=== PATIENT | female | born 2000 | race Caucasian/White ===

== ENCOUNTER 2023-07-03 07:18 | Outpatient (CLI) | payer MEDICAID ==
[2023-07-03] VITALS (21 sets, daily range): BP systolic 125–159; BP diastolic 69–105; PULSE 69–109
== END 2023-07-03 23:59 | disposition home or self-care (01) ==
LOC: CARD DIAG 07:18
PROVIDERS: ATTEND Nurse Practitioner Family
DX: R55 Syncope and collapse (principal)
CPT/HCPCS: 93660

== ENCOUNTER 2024-12-10 17:31 | Emergency (ER) | payer MEDICAID ==
[~2024-12-10] VITALS: Ht 165.1 cm; Wt 132.9 kg
--- NOTE | 2024-12-10 18:24 | Physician Documentation ---
History of Present Illness Chief Complaint: Abdominal Pain Stated Complaint: GALL BLADDER PAIN HPI This is a 24-year-old female who presents with right upper quadrant pain and n ausea for the past two months, patient reports pain became worse yesterday. Patient reports pain is typically worse after eating. Reports nausea without vomiting. History as above. No fevers Medication Reconciliation Allergies: Coded Allergies: No Known Allergies (Unverified , 12/10/24) Review of Systems ROS As stated above in the HPI, otherwise all systems are reviewed and negative. Physical Exam Vital Signs: Temperature: 97.1, Source: Temporal, Heart Rate: 68, Respiratory Rate: 18, BP: 133/80, Pulse Oximetry: 99, Weight: 132.900 Physical Exam General: Patient is awake, alert, oriented x4 in mild distress Head: Normocephalic and atraumatic. Eyes: Conjunctival normal. EOMI. PERRL. ENT: Mucous membranes moist. Neck: Supple, trachea is midline. Chest: Clear to auscultation bilaterally without rales, rhonchi, or wheezes. There is no accessory muscle use or retractions. Cardiac: RRR without murmurs, gallops, or rubs. Abd: Soft, nondistended, positive French's sign Progress Progress Note Patient has been accepted by [facility]. Patient demonstrates capacity and after the risks discussed patient would prefer to go by private vehicle. She has been given a packet with explicit instructions to go directly to [facility] to check into the ER to be directly admitted into the hospital as patient has already been accepted. Paper as paperwork in hand and also hand written note that has signed regarding circumstance. Results/Orders Results/Orders Vital Signs 12/10/24 17:39 Temp 97.1 Pulse 68 Resp 18 B/P (MAP) 133/80 Pulse Ox 99 Laboratory Tests Test 12/10/24 18:07 Medical Decision Making Additional information obtaine: old records Findings Patient presented to the emergency room with abdominal pain that has per HPI. Differentials include but are not limited to gastritis cholecystitis pancreat itis diverticulitis small-bowel obstruction therefore emergent labs and imaging indicated. Imaging is concerning for enlarged common bile duct stone along with elevated liver enzymes that has concern for choledocholithiasis. Unfortunately we do not have ERCP services at our facility we will need to transfer. Antibiotics initiated. Patient's pain is improved. Differential Dx:Considerations: -Inevitable, Angina/DE Departure Disposition: 02 SHORT TERM HOSPITAL Impression: Primary Impression: Cholelithiasis with choledocholithiasis Condition: Guarded Additional Instructions: You have chosen to transfer to alternative facility by private vehicle. You are to directly go to [facility] checking in the ER to be admitted. They should be aware you are comming. You were accepted by Dr. Martinez. Present them with a note and paperwork. Do not let them redo all the work that we did today. Police call [facility] room that has any questions. Referrals: NO PRIMARY CARE PROVIDER (PCP) Critical Care Note Total Time (mins): 30 Critical Care Note The very real possibility of a deterioration of this patient's condition required the highest level of my preparedness for sudden, emergent intervention. I provided critical care services, which included medication orders, frequent reevaluations of the patient's condition and response to treatment, ordering and reviewing test results, and discussing the case with various consultants. Excludes time spent performing separately billable procedures. The critical care time associated with the care of the patient was 30 minutes not counting procedures Signature Scribe Signature: No scribe Attestation: The note accurately reflects work and decisions made by me.Heriberto Mckenzie MD 12/10/24 23:34 ANDREE DOE Dec 10, 2024 18:24 HERIBERTO MCKENZIE MD Dec 10, 2024 20:05
[2024-12-10 18:26] LABS: MEAN PLATELET VOLUME 9.7 FL (7.4-10.4); RED CELL DISTRIBUTION WIDTH 13.6 % (11.5-14.5)
[2024-12-10 19:02] LABS: CREATININE 0.80 MG/DL (0.40-0.90); TOTAL CARBON DIOXIDE 28.0 MMOL/L (24-32); eCRCL 98 ML/MIN; eGFR 89 ML/MIN
[2024-12-10] MEDS: ketorolac trometh 15mg/ml vial 15 MG/ML ML IV ONE (20:20)
[2024-12-10] MEDS: ondansetron/PF 4mg/2ml inj IV ONE (20:20)
[2024-12-10] MEDS: morphine 4 MG/ML inj SYRINge IV ONE (20:21)
[2024-12-10] MEDS: piperacillin/tazo 3.375gm/50ml 50 ML IV SCH (20:25)
--- NOTE | 2024-12-10 21:18 | RADIOLOGY REPORT ---
INDICATION: Right upper quadrant pain TECHNIQUE: Multiple real-time sonographic images were obtained of the right upper quadrant. COMPARISON: None FINDINGS: The liver demonstrates heterogeneous echotexture without focal mass lesions. The liver measures 15.4 cm. There is no intrahepatic or extrahepatic ductal dilatation. The common duct measures 0.9 cm. Multiple gallstones are seen as well as sludge. The gallbladder wall measures 0.2 cm and is within normal limits. Sonographic French's sign appears to be positive. The right kidney measures 10.9 cm. The right kidney is normal in contour, size, and shape. The echogenicity is normal. There is no hydronephrosis. The pancreas is not well visualized due to overlying bowel gas. IMPRESSION: 1. Cholelithiasis and sludge with positive sonographic French's sign. No abnormal wall thickening or pericholecystic fluid. Findings are equivocal for acute cholecystitis. If further imaging evaluation is warranted, nuclear medicine HIDA scan may be useful. 2. Dilated common bile duct measuring 0.9 cm. Recommend correlation with MRCP.
[2024-12-10] MEDS: normal saline 1000ml 1,000 ML IV ONE (22:05)
[2024-12-10 22:25] LABS: LEUKOCYTE ESTERASE ,URINE NEGATIVE (Neg); NITRITES, URINE NEGATIVE (Neg); OCCULT BLOOD,URINE NEGATIVE (Neg); URINE HCG NEGATIVE (NEG)
[2024-12-10 22:42] LABS: UA COLLECTION TYPE CLN CATCH MIDSTREAM
[2024-12-10 23:00] VITALS: PULSE 70
[2024-12-11] MEDS: ketorolac trometh 15mg/ml vial 15 MG/ML ML IV ONE (05:11)
[2024-12-11] MEDS: morphine 4 MG/ML inj SYRINge IV ONE (05:11)
[2024-12-11] MEDS: ondansetron/PF 4mg/2ml inj IV ONE (05:12)
[2024-12-11 05:51] VITALS: BP 127/82; RESP 18; TEMP 97.1; O2SAT 100
== END 2024-12-11 06:20 | disposition short-term general hospital (02) ==
LOC: ER 17:32
DX: K80.70 Calculus of gallbladder and bile duct without cholecystitis without obstruction (principal)
CPT/HCPCS: 36415; 76700; 80053; 81003; 81025; 83690; 85025; 96374; 96375; 96376; 99291; J1885; J2270; J2405; J2543; J7030

== ENCOUNTER 2024-12-20 23:04 | Emergency (ER) | payer MEDICAID ==
[~2024-12-20] VITALS: Ht 167.6 cm; Wt 124.9 kg
[2024-12-20 23:28] VITALS: TEMP 97.9
--- NOTE | 2024-12-20 23:41 | Physician Documentation ---
History of Present Illness ~ Chief Complaint: Flank Pain Stated Complaint: R SIDE PAIN Time Seen by : 23:59 OK to notify your PCP?: Yes Source: patient Mode of Arrival: POV Exam Limitations: no limitations HPI Returns for right flank pain. [place] was seen [place] do not have those services at the time. This study revealed that she needed her gallbladder taken out and she was told to follow up appear to have a done on outpatient basis. She does have an appointment with the surgeon upcoming although she is starting to have pain all over again. She is also experiencing fever and chills at home. Medication Reconciliation Allergies: Coded Allergies: No Known Allergies (Unverified , 12/10/24) Review of Systems All Other Systems at this time: Reviewed and Negative Physical Exam Vital Signs: Temperature: 97.9, Source: Oral, Heart Rate: 81, Respiratory Rate: 18, BP: 132/80, Pulse Oximetry: 98, Weight: 124.900 Physical Exam VITALS: Reviewed and as above. GENERAL: Alert, no apparent distress. HEENT: Normocephalic, atraumatic, PERRL, EOMI, dry mucosa, no erythema RESPIRATORY: Lungs clear, normal breath sounds, no respiratory distress. CHEST: No accessory muscle use, no retractions CV: Regular rate, rhythm, no edema, no murmur, No: JVD GI: Soft, tender right upper quadrant, bowels sounds present, no rebound, guarding, or rigidity BACK: No CVA tenderness, or swelling MUSCULOSKELETAL: No deformities, no edema SKIN: Warm and dry, no rash NEURO: Oriented x4, No motor or sensory deficit PSYCH: Normal mood and affect, no agitation Progress Results/Orders Results/Orders Orders - CALLIE ISAAC MD Ultrasound Of Abdomen (12/21/24 01:22) Completed Orders - CALLIE ISAAC MD Procalcitonin (12/21/24 00:03) Normal Saline 1000ml (0.9% Sodium Chlori (12/21/24 00:10) Ketorolac Trometh 15mg/Ml Vial (Toradol (12/21/24 00:10) Ondansetron Inj. (Zofran 4mg/2ml Vial) (12/21/24 00:10) Morphine 4mg/Ml Inj. (Morphine Inj.) (12/21/24 01:25) Ceftriaxone 2gm/D5w 50ml Bag (Rocephin 2 (12/21/24 01:25) Medications Received in ER Medications (Trade) Dose Ordered Sig/Miguel Angel Route PRN Reason Start Time Stop Time Status Last Admin Dose Admin (0.9% sodium chloride (NS) 1000ml IV soln) 1,000 ml ONCE ONCE IVB 12/21/24 00:10 12/21/24 00:11 DC 12/21/24 00:25 1,000 ML (Toradol injection) 15 mg ONCE ONCE IV 12/21/24 00:10 12/21/24 00:11 DC 12/21/24 00:24 15 MG (Zofran 4mg/2ml vial) 4 mg ONCE ONCE IV 12/21/24 00:10 12/21/24 00:11 DC 12/21/24 00:23 4 MG (morphine inj.) 4 mg ONCE ONCE IV 12/21/24 01:25 12/21/24 01:26 DC 12/21/24 01:59 4 MG Ceftriaxone Sodium/Dextrose 50 ml @ 100 mls/hr ONCE ONCE IV 12/21/24 01:25 12/21/24 01:54 DC 12/21/24 02:01 100 MLS/HR Vital Signs 12/20/24 12/21/24 12/21/24 12/21/24 23:28 00:15 00:22 00:24 Temp 97.9 Pulse 81 76 80 Resp 18 18 18 B/P (MAP) 132/80 150/81 (104) 150/81 (104) Pulse Ox 98 99 99 12/21/24 12/21/24 12/21/24 12/21/24 00:30 00:45 01:00 01:15 Pulse 73 69 70 75 B/P (MAP) 142/83 (102) 129/65 (86) 120/66 (84) Pulse Ox 99 100 99 98 12/21/24 12/21/24 01:59 03:21 Pulse 72 Resp 16 B/P (MAP) 110/74 (86) Pulse Ox 97 Laboratory Tests Test 12/20/24 23:50 12/21/24 00:00 12/21/24 01:37 White Blood Count 8.2 Red Blood Count 4.69 Hemoglobin 14.0 Hematocrit 39.7 Mean Corpuscular Volume 84.7 Mean Corpuscular Hemoglobin 29.9 Mean Corpuscular Hemoglobin Concent 35.2 Red Cell Distribution Width 13.7 Platelet Count 267 Mean Platelet Volume 10.2 Neutrophils (%) (Auto) 62.3 Lymphocytes (%) (Auto) 28.3 Monocytes (%) (Auto) 7.5 Eosinophils (%) (Auto) 1.3 Basophils (%) (Auto) 0.6 Neutrophils # (Auto) 5.1 Lymphocytes # (Auto) 2.3 Monocytes # (Auto) 0.6 Eosinophils # (Auto) 0.1 Basophils # (Auto) 0.0 CBC Comment Sodium Level 137 Potassium Level 3.6 Chloride Level 105 Carbon Dioxide Level 24.6 Anion Gap 7 L Blood Urea Nitrogen 14 Creatinine 0.69 Estimated GFR/1.73 m2 > 90 BUN/Creatinine Ratio 20.3 H Glucose Level 95 Calcium Level 8.7 Total Bilirubin 0.8 Aspartate Amino Transf (AST/SGOT) 51 H Alanine Aminotransferase (ALT/SGPT) 149 H Alkaline Phosphatase 83 Total Protein 7.8 Albumin 3.7 Globulin 4.1 Albumin/Globulin Ratio 0.9 L Lipase 38 Chemistry Comments Procalcitonin < 0.05 Urine Specimen Description Cln catch midstream Urine Color Yellow Urine Clarity Clear Urine pH 6.0 Urine Specific [place] >=1.030 Urine Protein Negative Urine Glucose (UA) Negative Urine Ketones Negative Urine Occult Blood Negative Urine Nitrite Negative Urine Bilirubin Negative Urine Urobilinogen 0.2 Urine Leukocyte Esterase Negative Urine Culture Indicated Not ind Volume Urine Centrifuged 10 ml Urine HCG, Qualitative Negative Urine Comment Medical Decision Making Additional information obtaine: old records Findings The patient had a history of a choledocholithiasis presented today with right upper abdominal pain, the patient has slightly elevated LFTs but her T bili is not elevated and her ultrasound does not as a note shows significant common bile duct dilatation she did have significant improvement after some Toradol and a small dose of pain medication, as there was no obvious choledocholithiasis at this time or cholecystitis at this time the patient will be told follow up with her surgeon. She will be given a prescription for hydrocodone as well as Zofran and she is also going to be continued on Augmentin which she states she has been on up until two days ago. Diff Dx GI Bleed:Consideration: Include: Gastritis, Gastroenteritis Diff Dx Pain:Considerations: Include: Cholangitis, Cholelithasis, Gastritis/PUD Diff Dx N/V/D:Considerations: Include: Other Diff Dx Rectal:Considerations: Include: Other Departure Time of Disposition: 04:45 Disposition: 01 HOME / SELF CARE / HOMELESS Impression: Primary Impression: Biliary colic Condition: Improved Discharge Instructions: Biliary Colic, Adult Additional Instructions: Use ibuprofen for mild pain 600 mg every 6 hours, for more severe pain add the [place]. Use Zofran as needed for the nausea. Follow up with your surgeon on Sunday. If your symptoms worsen return to the emergency department. Referrals: NO PRIMARY CARE PROVIDER (PCP) Prescriptions Amox Tr/Potassium Clavulanate 875/125 MG (Augmentin 875/125 MG) 875 Mg-125 Mg Tablet 1 TAB PO BID, #14 TAB Prov: CALLIE ISAAC MD 12/21/24 ONDANSETRON ODT 4mg tablet (ONDANSETRON ODT) 4 Mg Tab.rapdis 1 TABLET PO Q6H PRN for nausea/vomiting, #12 TABLET Prov: CALLIE ISAAC MD 12/21/24 Hydrocodone Bit/Acetaminophen (Hydrocodone-Apap 10-325 Tablet) 10mg/325mg Tablet 1 TABLET PO Q8H PRN for pain, #12 TABLET Prov: CALLIE ISAAC MD 12/21/24 Additional Comment Seen with PA/[employer] The patient was seen with the nurse practitioner, and care was taken over in his in by myself. The patient is well-appearing in no distress at time of discharge. Medical Screen Exam This patient recieved a medical screening examination. After reviewing the individual's medical complaints with presenting symptoms and performing an appropriate physical examination, it was determined that no immediate life- threatening emergency medical condition is present. This individual is also not a women having contractions. Signature Scribe Signature: No scribe Attestation: The note accurately reflects work and decisions made by me.Callie Isaac MD 12/21/24 04:48 PRICILLA SIMMONSP Dec 20, 2024 23:41 CALLIE ISAAC MD Dec 21, 2024 01:55
[2024-12-21 00:09] LABS: MEAN PLATELET VOLUME 10.2 FL (7.4-10.4); RED CELL DISTRIBUTION WIDTH 13.7 % (11.5-14.5)
[2024-12-21] MEDS: ondansetron/PF 4mg/2ml inj IV ONE (00:23)
[2024-12-21] MEDS: ketorolac trometh 15mg/ml vial 15 MG/ML ML IV ONE (00:24)
[2024-12-21] MEDS: normal saline 1000ML IV soln IVB ONE (00:25)
[2024-12-21 01:05] LABS: CREATININE 0.69 MG/DL (0.40-0.90); TOTAL CARBON DIOXIDE 24.6 MMOL/L (24-32); eCRCL 119 ML/MIN; eGFR > 90 ML/MIN
[2024-12-21 01:52] LABS: LEUKOCYTE ESTERASE ,URINE NEGATIVE (Neg); NITRITES, URINE NEGATIVE (Neg); OCCULT BLOOD,URINE NEGATIVE (Neg)
[2024-12-21 01:53] LABS: URINE HCG NEGATIVE (NEG)
[2024-12-21 01:55] LABS: UA COLLECTION TYPE CLN CATCH MIDSTREAM
[2024-12-21] MEDS: morphine 4 MG/ML inj SYRINge IV ONE (01:59)
[2024-12-21] MEDS: CefTRIAXone 2gm/D5W 50ml BAG 50 ML IV ONE (02:01)
[2024-12-21] MEDS ORDERED: HYDR-3973 PO (04:43)
[2024-12-21] MEDS ORDERED: ONDA-243 PO (04:43)
[2024-12-21] MEDS ORDERED: AMOX-580 PO (04:44)
--- NOTE | 2024-12-21 05:09 | RADIOLOGY REPORT ---
EXAM: US ULTRASOUND OF ABDOMEN HISTORY: abd pain COMPARISON: US ULTRASOUND OF ABDOMEN on DOS: 12/10/24 TECHNIQUE: Right upper quadrant ultrasound was performed. FINDINGS: Sludge and gallstones are identified in the gallbladder lumen, without gallbladder wall thickening or pericholecystic free fluid. The patient was not tender to transducer pressure over the gallbladder. No intrahepatic biliary ductal dilatation or liver mass. The liver measures 15.3 cm longitudinal. There is hepatopetal portal venous color Doppler flow. The common duct measures 3.5 mm in diameter. The partially visualized pancreas is unremarkable. The intrahepatic portion of the IVC is patent. No upper abdominal aortic ectasia. The right kidney measures 9.9 cm in length and is normal in appearance. IMPRESSION: 1. Cholelithiasis without sonographic evidence of acute cholecystitis. 2. Otherwise unremarkable right upper quadrant ultrasound.
[2024-12-21 06:21] VITALS: BP 116/67; PULSE 74; RESP 18; O2SAT 97
== END 2024-12-21 06:32 | disposition home or self-care (01) ==
LOC: ER 23:04
DX: K80.50 Calculus of bile duct without cholangitis or cholecystitis without obstruction (principal)
CPT/HCPCS: 36415; 76700; 80053; 81003; 81025; 83690; 84145; 85025; 96361; 96365; 96375; 99285; J0696; J1885; J2270; J2405; J7030